=== PATIENT | male | born 1965 | race Hispanic/Latino ===

== ENCOUNTER 2018-12-21 15:26 | Emergency (ER) | payer OTHER, MEDICARE ==
[~2018-12-21 15:26] MED LIST: CEPH-578 PO; HYDR-2132 PO; INSU100V12 SQ; LEVO137T2 PO; LISI-617 PO; SIMV40TA59 PO
[2018-12-21] MEDS ORDERED: ONDANSETRON HCL 4 MG/2 ML VIAL ONE (15:38)
[2018-12-21] MEDS ORDERED: SODIUM CHLORIDE 0.9% 1000ML 1,000 ML IV ONE (15:39)
[2018-12-21] MEDS ORDERED: ASPIRIN 325 MG TABLET ONE ×2 (15:39→16:27)
[2018-12-21 15:44] LABS: EOSINOPHILS % (AUTO) 2.7 % (0.0-8.0); LYMPHOCYTES % (AUTO) 32.6 % (21.0-51.0); MEAN CORPUSCULAR HEMOGLOBIN 30.5 pg (27.0-33.0); MEAN CORPUSCULAR HGB CONC 34.4 g/dL (32.0-36.0); MEAN CORPUSCULAR VOLUME 88.8 fL (79-99); MONOCYTES % (AUTO) 7.5 % (3.0-13.0); NEUTROPHILS % (AUTO) 56.2 % (40.0-77.0); PLATELET COUNT (AUTO) 95 K/uL (130-400); RED BLOOD CELL COUNT(AUTO) 4.39 MIL/uL (4.50-6.20); RED CELL DISTRIBUTION WIDTH 13.4 % (11.0-15.5); WHITE BLOOD COUNT (AUTO) 3.4 K/uL (4.8-10.8)
[2018-12-21 15:55] LABS: POTASSIUM 3.7 mmol/L (3.5-5.1)
[2018-12-21 16:01] LABS: ALBUMIN 3.9 g/dL (3.5-5.0); BILIRUBIN,TOTAL 0.6 mg/dL (0.2-1.0); TOTAL PROTEIN, SERUM 6.9 g/dL (6.0-8.3)
[2018-12-21 16:08] LABS: B-TYPE NATRIURETIC PEPTIDE 24 pg/mL (0-100)
[2018-12-21 16:40] LABS: AMPHET/METH SCREEN,URINE NEGATIVE (NEGATIVE); BARBITURATE SCREEN, URINE NEGATIVE (NEGATIVE); BENZODIAZEPINES SCREEN,URINE NEGATIVE (NEGATIVE); CANNABINOID SCREEN,URINE NEGATIVE (NEGATIVE); COCAINE SCREEN,URINE NEGATIVE (NEGATIVE); OPIATE SCREEN,URINE NEGATIVE (NEGATIVE); PHENCYCLIDINE SCREEN,URINE NEGATIVE (NEGATIVE)
== END 2018-12-21 18:29 | disposition home or self-care (01) ==
LOC: EDH 15:26
DX: R42 Dizziness and giddiness (principal); R06.00 Dyspnea, unspecified; E11.9 Type 2 diabetes mellitus without complications; Z98.890 Other specified postprocedural states; Z72.0 Tobacco use; Z88.1 Allergy status to other antibiotic agents; Z88.8 Allergy status to other drugs, medicaments and biological substances
CPT/HCPCS: 36415; 71045; 80053; 80305; 82550; 83880; 84484; 85025; 93005; 96361; 96374; 99285; J2405; J7030

== ENCOUNTER 2020-08-09 10:24 | Emergency (ER) | payer OTHER, MEDICARE ==
[~2020-08-09 10:24] MED LIST changes: -LISI-617 PO; +LISI-809 PO
[2020-08-09 10:45] LABS: APPEARANCE,URINE Cloudy (CLEAR); BILIRUBIN,URINE Negative (NEGATIVE); COLOR,URINE Dark Yellow (YELLOW); GLUCOSE, URINE (UA) Negative (NEGATIVE); KETONES,URINE Trace mg/dL (NEGATIVE); LEUKOCYTE ESTERASE ,URINE Trace (NEGATIVE); NITRATE,URINE Negative (NEGATIVE); OCCULT BLOOD,URINE Large (NEGATIVE); PH,URINE 5.5 (5.0-8.0); PROTEIN,URINE Trace mg/dL (NEGATIVE)
[2020-08-09] MEDS ORDERED: ONDANSETRON HCL 4 MG/2 ML VIAL ONE (10:46)
[2020-08-09] MEDS ORDERED: KETOROLAC TROMETHAMINE 30MG/ML ONE (10:46)
[2020-08-09] MEDS ORDERED: SODIUM CHLORIDE 0.9% 1000ML 1,000 ML IV ONE (10:49)
[2020-08-09 10:50] LABS: BASOPHILS % (AUTO) 0.8 % (0.0-5.0); HEMATOCRIT 40.4 % (42-54); LYMPHOCYTES % (AUTO) 28.3 % (21.0-51.0); MEAN CORPUSCULAR HEMOGLOBIN 29.7 pg (27.0-33.0); MEAN CORPUSCULAR HGB CONC 33.9 g/dL (32.0-36.0); MEAN CORPUSCULAR VOLUME 87.6 fL (79-99); MONOCYTES % (AUTO) 7.3 % (3.0-13.0); NEUTROPHILS % (AUTO) 60.1 % (40.0-77.0); PLATELET COUNT (AUTO) 109 K/uL (130-400); RED BLOOD CELL COUNT(AUTO) 4.61 MIL/uL (4.50-6.20); RED CELL DISTRIBUTION WIDTH 12.7 % (11.0-15.5)
[2020-08-09 10:52] LABS: BACTERIA,URINE Many /HPF (None Seen); RBC,URINE 26-50 /HPF (0-1)
[2020-08-09 10:53] LABS: SQUAMOUS EPITHELIAL CELL,UR Few /HPF (0-2)
[2020-08-09 11:04] LABS: ALBUMIN 3.9 g/dL (3.5-5.0); BILIRUBIN,TOTAL 0.7 mg/dL (0.2-1.0); CREATININE 0.9 mg/dL (0.5-1.5); POTASSIUM 3.8 mmol/L (3.5-5.1)
== END 2020-08-09 13:29 | disposition home or self-care (01) ==
LOC: EDH 10:24
DX: N39.0 Urinary tract infection, site not specified (principal); R31.9 Hematuria, unspecified; E11.9 Type 2 diabetes mellitus without complications; Z72.0 Tobacco use; Z88.6 Allergy status to analgesic agent; Z88.1 Allergy status to other antibiotic agents
CPT/HCPCS: 36415; 74176; 80053; 81001; 83690; 85025; 87088; 96361; 96374; 96375; 99284; J1885; J2405; J7030

== ENCOUNTER 2021-04-27 08:35 | Emergency (ER) | payer MEDICARE, OTHER ==
[~2021-04-27] VITALS: Ht 177.8 cm; Wt 108.9 kg
[~2021-04-27 08:35] MED LIST changes: -LISI-809 PO; +LISI5TAB21 PO
[2021-04-27 09:27] LABS: HEMATOCRIT 40.7 % (42-54); MEAN CORPUSCULAR HEMOGLOBIN 29.5 pg (27.0-33.0); MEAN CORPUSCULAR HGB CONC 34.2 g/dL (32.0-36.0); MEAN CORPUSCULAR VOLUME 86.4 fL (79-99); RED BLOOD CELL COUNT(AUTO) 4.71 MIL/uL (4.50-6.20); RED CELL DISTRIBUTION WIDTH 12.8 % (11.0-15.5); WHITE BLOOD COUNT (AUTO) 4.7 K/uL (4.8-10.8)
[2021-04-27 09:29] LABS: APPEARANCE,URINE Cloudy (CLEAR); BILIRUBIN,URINE Small (NEGATIVE); COLOR,URINE Dark Yellow (YELLOW); GLUCOSE, URINE (UA) Negative (NEGATIVE); KETONES,URINE Trace mg/dL (NEGATIVE); LEUKOCYTE ESTERASE ,URINE Trace (NEGATIVE); NITRATE,URINE Negative (NEGATIVE); OCCULT BLOOD,URINE Trace (NEGATIVE); PH,URINE 5.5 (5.0-8.0); PROTEIN,URINE POS 1+ mg/dL (NEGATIVE)
[2021-04-27 09:44] LABS: ALBUMIN 4.1 g/dL (3.5-5.0); BILIRUBIN,TOTAL 0.7 mg/dL (0.2-1.0); POTASSIUM 3.8 mmol/L (3.5-5.1); TOTAL PROTEIN, SERUM 7.6 g/dL (6.0-8.3)
[2021-04-27 10:02] LABS: BACTERIA,URINE None Seen /HPF (None Seen); HYALINE CASTS, URINE 0-1 /LPF (0-1 /LPF); MUCUS,URINE Moderate LPF (None Seen); RBC,URINE 0-1 /HPF (0-1); SQUAMOUS EPITHELIAL CELL,UR 0-2 /HPF (0-2)
[2021-04-27] MEDS ORDERED: LEVOFLOXACIN 750 MG/D5W 150 ML 150 ML IV STA (13:30)
[2021-04-27] MEDS ORDERED: CIPR500S5 PO (13:37)
[2021-04-27 15:45] VITALS: BP 103/65
== END 2021-04-27 15:57 | disposition home or self-care (01) ==
LOC: EDH 08:35
DX: N41.9 Inflammatory disease of prostate, unspecified (principal); D72.829 Elevated white blood cell count, unspecified; Z88.1 Allergy status to other antibiotic agents; Z88.6 Allergy status to analgesic agent; Z79.899 Other long term (current) drug therapy; Z90.49 Acquired absence of other specified parts of digestive tract; Z98.84 Bariatric surgery status
CPT/HCPCS: 36415; 74176; 80053; 81001; 85027; 96365; 99284; J1956

== ENCOUNTER 2025-05-18 19:29 | Emergency (ER) | payer OTHER ==
[~2025-05-18] VITALS: Ht 175.3 cm; Wt 105.5 kg
[~2025-05-18 19:29] MED LIST changes: +CIPR500S5 PO
[2025-05-18 19:59] LABS: IMMATURE GRANULOCYTE ABSOLUTE 0.01 K/uL (0-1); NUCLEATED RED BLOOD CELLS 0.0 % (0.0-0.19); PLATELET COUNT (AUTO) 123 K/uL (130-400); RED BLOOD CELL COUNT(AUTO) 4.39 MIL/uL (4.50-6.20); RED CELL DISTRIBUTION WIDTH 12.7 % (11.0-15.5); WHITE BLOOD COUNT (AUTO) 5.6 K/uL (4.8-10.8)
[2025-05-18 19:59] LABS: RAPID GROUP A STREP negative (NEGATIVE)
[2025-05-18 20:07] LABS: CREATININE 1.0 mg/dL (0.5-1.3); GLOMERULAR FILTR. RATE CALC 87.0 mL/min (>90); GLUCOSE,RANDOM 196.0 mg/dL (70-105); SODIUM SERUM 137.0 mmol/L (136-145); UREA NITROGEN, BLOOD 13.0 mg/dL (7-18)
--- NOTE | 2025-05-18 20:08 | ERN ---
ED Note History of Present Illness Stated Complaint: FLU SYM Chief Complaint: Flu Symptoms Time Seen by MD: 19:35 Dictation: Patient is a old male who presented to the ER complaining of flu-like symptoms, reports cough, congestion, dizziness, whole-body ache x4 days. Allergies: Coded Allergies: vancomycin (Unverified Allergy, Severe, ITCHING, 10/12/15) naproxen (Verified Allergy, Unknown, 10/12/15) Home Meds Active Scripts Acetaminophen (Tylenol) 325 Mg Tablet, 1-2 TAB PO QIDP PRN for pain or fever for 7 Days, #20 TAB 0 Refills Prov:GLORIA PLAZA MD 05/18/25 Guaifenesin (Guaifenesin) 100 Mg/5 Ml Liq, 10 ML PO QID for cough for 3 Days, #120 ML 0 Refills Prov:GLORIA PLAZA MD 05/18/25 Ciprofloxacin (Ciprofloxacin) 500 Mg/5 Ml Roxana..rec, 500 MG PO BID for 21 Days, #42 TAB Prov:ESTEVAN MILIAN MD 04/27/21 Cephalexin (Keflex) 500 Mg Capsule, 500 MG PO Q8HR, #30 CAP 0 Refills Prov:HEBERT BENNETT MD 03/13/16 Hydrocodone Bit/Acetaminophen ([place] 5/325Mg) 1 Tab Tablet, 1-2 TAB PO Q-6HR PRN for PAIN, #60 TAB Prov:HEBERT BENNETT MD 03/13/16 Reported Medications Insulin Detemir (Levemir) 100 Unit/1 Ml Vial, 30 UNIT SQ BID, VIAL 03/12/16 Simvastatin (ZOCOR) 40 Mg Tablet, 40 MG PO HS 10/12/15 Lisinopril (Lisinopril) 5 Mg Tablet, 5 MG PO DAILY 10/12/15 Levothyroxine Sodium (Levothyroxine Sodium) 137 Mcg Tablet, 137 MCG PO ACBKFST, TAB 10/12/15 Past Medical History Past Medical History: Hypothyroid, Liver Disease, Urolithiasis, Other Additional Past Medical Hx: CIRRHOSIS, GASTRIC BYPASS Surgical History: Other Surgical History Other: GASTRIC BYPASS Review of System Dictation NEGATIVE EXCEPT PER HPI Constitutional: Reports body aches, shaking Eyes: Negative for injury, pain,redness, and discharge ENT: Negative for injury,pain or swelling Cardiovascular: denies chest pain, palpitations, and edema Respiratory: Reports coughing Abdomen/GI: Negative for abdominal pain, nausea, vomiting, diarrhea, and constipation Back: Negative for injury and pain : Negative for injury, bleeding and discharge MS/Extremity: Negative for injury and deformity Skin: Negative for rash, and discoloration Neuro: Negative for headache, weakness, numbness, tingling, and seizure Psych: Negative for suicide ideation, homicidal ideation, and hallucinations Initial Vital Sign VS Vital Signs Date Time Temp Pulse Resp B/P (MAP) Pulse Ox O2 Delivery O2 Flow Rate FiO2 05/18/25 19:33 98.2 85 18 159/90 99 05/18/25 21:05 Room Air* 0 21 Physical Exam Dictation General: awake, alert, NAD Head/Face: Normocephalic, atraumatic Eyes: PERRL, EOMI, vision at baseline ENT: oral cavity clear, TMs clear, no signs of infection Neck: Trachea midline, supple, no nuchal rigidity Cardiovascular: RRR, normal S1/S2, No MRGs, no JVD Respiratory: Minimal bibasilar rales Abdomen: Soft , no tender Skin: Warm, dry, normal turgor, no rash MS/Extremity: Pulses equal, no cyanosis, neurovascular intact, FROM Neuro: COAx4, GCS 15, strength 5/5, CN 2-12 intact, normal cerebellar exam, normal gait, Psych: Normal behavior, mood, and affect normal Results (Laboratory/Radiology) Laboratory/Radiology Laboratory Tests Test 05/18/25 19:40 05/18/25 19:49 Influenza Type A Antigen Negative For Type A Influenza Type B Antigen Negative For Type B SARS-CoV-2 Antigen (Rapid) PRESUMPTIVE NEGATIVE Group A Streptococcus Rapid negative (NEGATIVE) White Blood Count 5.6 K/uL (4.8-10.8) Red Blood Count 4.39 MIL/uL (4.50-6.20) L Hemoglobin 13.0 g/dL (14.0-18.0) L Hematocrit 38.1 % (42-54) L Mean Corpuscular Volume 86.8 fL (79-99) Mean Corpuscular Hemoglobin 29.6 pg (27.0-33.0) Mean Corpuscular Hemoglobin Concent 34.1 g/dL (32.0-36.0) Red Cell Distribution Width 12.7 % (11.0-15.5) Platelet Count 123 K/uL (130-400) L Mean Platelet Volume 10.7 fL (7.5-10.5) H Immature Granulocyte % (Auto) 0.2 % (0-1) Neutrophils (%) (Auto) 76.6 % (40.0-77.0) Lymphocytes (%) (Auto) 11.6 % (21.0-51.0) L Monocytes (%) (Auto) 11.4 % (3.0-13.0) Eosinophils (%) (Auto) 0.0 % (0.0-8.0) Basophils (%) (Auto) 0.2 % (0.0-5.0) Neutrophils # (Auto) 4.3 K/uL (1.8-7.7) Lymphocytes # (Auto) 0.7 K/uL (1.0-4.8) L Monocytes # (Auto) 0.6 K/uL (0.1-1.0) Eosinophils # (Auto) 0.00 K/uL (0.00-0.70) Basophils # (Auto) 0.01 K/uL (0.00-0.20) Absolute Immature Granulocyte (auto 0.01 K/uL (0-1) Nucleated Red Blood Cells 0.0 % (0.0-0.19) Sodium Level 137 mmol/L (136-145) Potassium Level 4.1 mmol/L (3.5-5.1) Chloride Level 99 mmol/L (101-111) L Carbon Dioxide Level 32 mmol/L (21-32) Blood Urea Nitrogen 13 mg/dL (7-18) Creatinine 1.0 mg/dL (0.5-1.3) Glomerular Filtration Rate Calc 87 mL/min (>90) Random Glucose 196 mg/dL (70-105) H Total Calcium 9.1 mg/dL (8.5-10.1) ED Course ED Course Orders Procedure Category Date Status Time Influenza Type A & B, LAB 05/18/25 Complete Rapid 19:36 Rapid (Group A Strep) LAB 05/18/25 Complete 19:36 Covid19 (Sars Antigen LAB 05/18/25 Complete Rapid) 19:36 Basic Metabolic Panel LAB 05/18/25 Complete 19:36 Cbc With Differential LAB 05/18/25 Complete 19:36 0.9%Nacl 1000ml (Ns PHA 05/18/25 Complete 1000ml) 20:00 Ipratropium/Albuterol PHA 05/18/25 Complete Neb (Duoneb) 20:00 Current Medications Medications (Trade) Dose Ordered Sig/Narda Route PRN Reason Start Time Stop Time Status Last Admin Dose Admin Albuterol (DUOneb) 1 udvial ONCE ONCE IH 05/18/25 20:00 05/18/25 20:02 DC 05/18/25 20:43 Sodium Chloride 1,000 ml @ 0 mls/hr ONCE ONCE IV 05/18/25 20:00 05/18/25 20:01 DC 05/18/25 21:05 Vital Signs Date Time Temp Pulse Resp B/P (MAP) Pulse Ox O2 Delivery O2 Flow Rate FiO2 05/18/25 21:05 98.8 79 16 124/61 79 Room Air* 0 21 05/18/25 20:43 80 17 05/18/25 19:33 98.2 85 18 159/90 99 Medical Decision Making MDM Patient is a old male who presented to the ER complaining of flu-like symptoms, reports cough, congestion, dizziness, whole-body ache x4 days. Reports poor appetite. Feels dehydrated. -respiratory infection -dehydration Ordered CBC, BMP Swab for COVID strep, and flu Ordered DuoNeb and IV fluids1 L NS DX & DISP Disposition: Discharge Departure Impression: Primary Impression: Respiratory infection Additional Impression: Dehydration Condition: Stable Scripts Acetaminophen (Tylenol) 325 Mg Tablet 1-2 TAB PO QIDP PRN for pain or fever for 7 Days, #20 TAB 0 Refills Prov: GLORIA PLAZA MD 05/18/25 Guaifenesin (Guaifenesin) 100 Mg/5 Ml Liq 10 ML PO QID for cough for 3 Days, #120 ML 0 Refills Prov: GLORIA PLAZA MD 05/18/25 Additional Instructions: RETURN TO ER FOR ANY ACUTE OR WORSENING SYMPTOMS. FOLLOW-UP IN 1-2 DAYS WITH PRIMARY PROVIDER FOR RECHECK OF TODAY'S SYMPTOMS. Referrals: SANJEEV SOLIS (PCP) Time of Disposition: 21:01 GLORIA PLAZA MD May 18, 2025 20:08
[2025-05-18 20:12] LABS: COVID19 (SARS ANTIGEN RAPID) PRESUMPTIVE NEGATIVE (NEGATIVE)
[2025-05-18 20:13] LABS: INFLUENZA TYPE A Negative For Type A (NEGATIVE); INFLUENZA TYPE B Negative For Type B (NEGATIVE)
[2025-05-18] MEDS ORDERED: ACET-2247 PO (20:41)
[2025-05-18] MEDS ORDERED: GUAI100S13 PO (20:41)
[2025-05-18 20:43] VITALS: PULSE 80; RESP 17
[2025-05-18 21:05] VITALS: BP 124/61; PULSE 79; RESP 16; TEMP 98.8; O2SAT 79
[2025-05-18] MEDS: 0.9%NACL 1000ML 1,000 ML IV ONE (21:05)
== END 2025-05-18 21:48 | disposition home or self-care (01) ==
LOC: EDH 19:29
DX: J98.8 Other specified respiratory disorders (principal); E86.0 Dehydration; E03.9 Hypothyroidism, unspecified; Z88.1 Allergy status to other antibiotic agents; Z20.822 Contact with and (suspected) exposure to COVID-19; Z88.6 Allergy status to analgesic agent; Z79.899 Other long term (current) drug therapy; Z87.442 Personal history of urinary calculi; Z98.84 Bariatric surgery status
CPT/HCPCS: 99283; 87426; 80048; 85025; 87880; 87804 ×2; 36415; 94640; J7030